=== PATIENT | female | born 1940 | race Two or more races ===

== ENCOUNTER 2019-09-25 09:11 | Emergency (ER) | payer OTHER ==
[~2019-09-25] VITALS: Ht 154.9 cm; Wt 59.0 kg
[2019-09-25] MEDS ORDERED: CLEOCIN HCL300 MG PO (09:19)
[2019-09-25] MEDS ORDERED: NEURONTIN300 MG PO (09:19)
[2019-09-25] MEDS ORDERED: INDERAL LA80 MG PO (09:19)
[2019-09-25] MEDS ORDERED: SYNTHROID100 MCG PO (09:19)
[2019-09-25] MEDS ORDERED: BACTRIM 400-801 EACH PO (09:31)
[2019-09-25] MEDS ORDERED: CODE1TAB37 PO (09:55)
== END 2019-09-25 10:00 | disposition home or self-care (01) ==
LOC: ER 09:11
DX: L02.411 Cutaneous abscess of right axilla (principal)

== ENCOUNTER 2020-03-10 13:31 | Outpatient (CLI) | payer OTHER ==
[~2020-03-10 13:31] MED LIST: BACTRIM 400-801 EACH PO; CLEOCIN HCL300 MG PO; CODE1TAB37 PO; INDERAL LA80 MG PO; NEURONTIN300 MG PO; SYNTHROID100 MCG PO
== END 2020-03-10 15:55 | disposition home or self-care (01) ==
LOC: PPH VACUNA 13:31
PROVIDERS: ATTEND Emergency Medicine Pediatric Emergency Medicine
DX: Z23 Encounter for immunization (principal)

== ENCOUNTER → 2020-03-31 08:00 | Outpatient (CLI) | payer OTHER | END | disposition home or self-care (01) | LOC: PPH VACUNA 08:00 | PROVIDERS: ATTEND Emergency Medicine Pediatric Emergency Medicine | DX: Z23 Encounter for immunization (principal) ==

== ENCOUNTER 2022-06-09 16:39 | Emergency (ER) | payer OTHER ==
[~2022-06-09] VITALS: Ht 152.4 cm; Wt 59.0 kg
== END 2022-06-09 20:04 | disposition home or self-care (01) ==
LOC: ER 16:39
DX: K05.219 Aggressive periodontitis, localized, unspecified severity (principal)